=== PATIENT | male | born 2000 | race American Indian/Alaskan Native ===

== ENCOUNTER 2021-11-06 18:27 | Emergency (ER) | payer SELFPAY ==
[2021-11-06 18:43] VITALS: BP 157/88
[2021-11-06] MEDS ORDERED: ALBUTEROL 2.5 MG/3 ML NEBU IH ONE ×2 (20:05→20:48)
[2021-11-06] MEDS ORDERED: IPRATROPIUM 0.02% NEBU 2.5 ML IH ONE ×2 (20:06→20:46)
--- NOTE | 2021-11-06 20:25 | XRay Report ---
CHEST 2 VIEWS INDICATION / CLINICAL INFORMATION: shortness of breath. COMPARISON: None available. FINDINGS: SUPPORT DEVICES: None. HEART / MEDIASTINUM: No significant abnormality. LUNGS / PLEURA: No significant pulmonary or pleural abnormality. No pneumothorax. ADDITIONAL FINDINGS: No significant additional findings. IMPRESSION: 1. No acute findings. Signer Name: Piero Mayberry MD Signed: 11/06/2021 8:21 PM Workstation Name: [id number]
[2021-11-06] MEDS ORDERED: methylPREDNISolone Sod Succinate 125 MG/2 ML INJ IM ONE (20:46)
--- NOTE | 2021-11-06 22:40 | Emergency Department Report ---
ED Shortness of Breath HPI - General Chief Complaint: Dyspnea/Respdistress Stated Complaint: TROUBLE BREATHING Source: patient Mode of arrival: Ambulatory Limitations: No Limitations - History of Present Illness Initial Comments: Patient is a 20-year-old -[place] male with a history of asthma who presents to the ED with complaint of acute onset persistent nasal and sinus congestion, persistent dry cough with wheezing and chest tightness and shortness of breath for the last 1 week. Patient states that he has been using his brothers albuterol nebulizer at home with no relief. Patient stated that he has also been using his albuterol inhaler more frequently and ran out of his own inhaler prior to arrival in the ED, stating that these treatments at home did not help control his shortness of breath and wheezing. Patient denies dizziness, syncope, chest pain, nausea and vomiting, sore throat, diarrhea, dysuria, urinary frequency and urgency or palpitations and headache. MD Complaint: shortness of breath, cough, "asthma attack" -: Sudden, week(s) (1) Severity: moderate Pain Scale: 6 Quality: other Consistency: constant (Chest tightness) Improves With: nothing Worsens With: movement, coughing Known History Of: asthma Context: recent URI, allergen exposure, smoke/fume exposure Associated Symptoms: denies other symptoms, cough Treatments Prior to Arrival: bronchodilator - Related Data Home Oxygen Therapy: No Previous Rx's Medication Instructions Recorded Last Taken Type Albuterol Sulfate [Proair 1 - 2 puff IH Q6H PRN #1 inh 11/06/21 Unknown Rx Respiclick] Azithromycin [Zithromax Z-KATHY] 250 mg PO DAILY #6 tab 11/06/21 Unknown Rx Benzonatate [Tessalon Perles] 100 mg PO Q8HR #30 cap 11/06/21 Unknown Rx Cetirizine HCl [Zyrtec 10mg tab] 10 mg PO DAILY #30 tab 11/06/21 Unknown Rx methylPREDNISolone [Medrol 4MG 4 mg PO DAILY #21 tab 11/06/21 Unknown Rx DOSEPAK (21 tabs)] Allergies Allergy/AdvReac Type Severity Reaction Status Date / Time No Known Allergies Allergy Unverified 11/06/21 18:40 ED Review of Systems ROS: Stated complaint: TROUBLE BREATHING Other details as noted in HPI Constitutional: denies: chills, fever Eyes: denies: eye pain, eye discharge, vision change ENT: congestion. denies: ear pain, throat pain Respiratory: cough, shortness of breath, wheezing Cardiovascular: denies: chest pain, palpitations Endocrine: no symptoms reported Gastrointestinal: denies: abdominal pain, nausea, diarrhea Genitourinary: denies: urgency, dysuria Musculoskeletal: denies: back pain, joint swelling, arthralgia Skin: denies: rash, lesions Neurological: denies: headache, weakness, paresthesias Psychiatric: denies: anxiety, depression Hematological/Lymphatic: denies: easy bleeding, easy bruising ED Past Medical Hx - Past Medical History Previous Medical History?: Yes Hx Asthma: Yes - Medications Home Medications: Home Medications Medication Instructions Recorded Confirmed Last Taken Type Albuterol Sulfate [Proair 1 - 2 puff IH Q6H PRN #1 inh 11/06/21 Unknown Rx Respiclick] Azithromycin [Zithromax Z-KATHY] 250 mg PO DAILY #6 tab 11/06/21 Unknown Rx Benzonatate [Tessalon Perles] 100 mg PO Q8HR #30 cap 11/06/21 Unknown Rx Cetirizine HCl [Zyrtec 10mg tab] 10 mg PO DAILY #30 tab 11/06/21 Unknown Rx methylPREDNISolone [Medrol 4MG 4 mg PO DAILY #21 tab 11/06/21 Unknown Rx DOSEPAK (21 tabs)] ED Physical Exam - General Limitations: No Limitations General appearance: alert, in no apparent distress - Head Head exam: Present: atraumatic, normocephalic, normal inspection - Eye Eye exam: Present: normal appearance, PERRL, EOMI Pupils: Present: normal accommodation - ENT ENT exam: Present: mucous membranes moist, TM's normal bilaterally, normal external ear exam, other (Grossly congested nasal passages) - Neck Neck exam: Present: normal inspection, full ROM. Absent: tenderness - Respiratory Respiratory exam: Present: wheezes (Diffuse coarse wheezes throughout). Absent: normal lung sounds bilaterally, respiratory distress, rales, rhonchi, chest wall tenderness, accessory muscle use, decreased breath sounds, prolonged expiratory - Cardiovascular Cardiovascular Exam: Present: regular rate, normal rhythm, normal heart sounds. Absent: systolic murmur, diastolic murmur, rubs, gallop - GI/Abdominal GI/Abdominal exam: Present: soft, normal bowel sounds. Absent: tenderness, guarding, rebound, hyperactive bowel sounds, hypoactive bowel sounds, organomegaly, bruit - Extremities Exam Extremities exam: Present: normal inspection, full ROM, normal capillary refill. Absent: tenderness - Back Exam Back exam: Present: normal inspection, full ROM. Absent: tenderness, CVA tenderness (R), CVA tenderness (L), muscle spasm, paraspinal tenderness, vertebral tenderness - Neurological Exam Neurological exam: Present: alert, oriented X3, CN II-XII intact, normal gait, reflexes normal - Psychiatric Psychiatric exam: Present: normal affect, normal mood, anxious - Skin Skin exam: Present: warm, dry, intact, normal color. Absent: rash ED Course Vital Signs 11/06/21 11/06/21 11/06/21 18:42 20:33 20:34 Temperature 98.6 F Pulse Rate 67 Pulse Rate [ 62 Posterior Bilateral Throughout] Respiratory 18 Rate Respiratory 18 Rate [Posterior Bilateral Throughout] Blood Pressure 157/88 [Right] O2 Sat by Pulse 96 96 Oximetry 11/06/21 22:06 Temperature Pulse Rate Pulse Rate [ 79 Posterior Bilateral Throughout] Respiratory Rate Respiratory 18 Rate [Posterior Bilateral Throughout] Blood Pressure [Right] O2 Sat by Pulse Oximetry ED Medical Decision Making - Radiology Data Radiology results: report reviewed, [place] [address] XRay Report Signed Patient: DORIAN VARMA MR#: [id number] : 2000 Acct:[id number] Age/Sex: 20 / M ADM Date: 11/06/21 Loc: ED Attending Dr: Ordering Physician: YEVGENIY TERAN Date of Service: 11/06/21 Procedure(s): XR chest routine 2V Accession Number(s): [id number] cc: YEVGENIY TERAN Fluoro Time In Minutes: CHEST 2 VIEWS INDICATION / CLINICAL INFORMATION: shortness of breath. COMPARISON: None available. FINDINGS: SUPPORT DEVICES: None. HEART / MEDIASTINUM: No significant abnormality. LUNGS / PLEURA: No significant pulmonary or pleural abnormality. No pneumothorax. ADDITIONAL FINDINGS: No significant additional findings. IMPRESSION: 1. No acute findings. Signer Name: Piero Mayberry MD Signed: 11/06/2021 8:21 PM Workstation Name: [id number] Transcribed By: CW Dictated By: AYUSH MAYBERRY MD Electronically Authenticated By: AYUSH MAYBERRY MD Signed Date/Time: 11/06/212020 DD/ 20 TD/TT: Print Cancel - Medical Decision Making This is a 20-year-old -[place] male with a history of asthma who presents to the ED with complaint of acute onset persistent nasal and sinus congestion, persistent dry cough with wheezing and chest tightness and shortness of breath for the last 1 week. Patient states that he has been using his brothers albuterol nebulizer at home with no relief. Patient stated that he has also been using his albuterol inhaler more frequently and ran out of his own inhaler prior to arrival in the ED, stating that these treatments at home did not help control his shortness of breath and wheezing. In the ED, patient is alert and oriented x3 and is not in any distress. Patient is hemodynamically stable. Patient was treated in the ED with DuoNeb x2 and Solu-Medrol 125 mg intramuscular injection. Chest x-ray showed no acute cardiopulmonary abnormalities or pneumonitis. On reevaluation, patient's symptoms improved significantly, oxygen saturation remained at 100% on room air in the wheezing resolved. Patient was discharged home on medications and advised to follow-up with his primary care physician in 5 to 7 days for reevaluation or return to the ED immediately if symptoms get worse. - Differential Diagnosis Asthma; bronchitis; pneumonia; URI; rhinitis Critical care attestation.: If time is entered above; I have spent that time in minutes in the direct care of this critically ill patient, excluding procedure time. ED Disposition Clinical Impression: Acute bronchitis with asthma with acute exacerbation, Acute upper respiratory infection Disposition: HOME / SELF CARE / HOMELESS Is pt being admited?: No Does the pt Need Aspirin: No Condition: Stable Instructions: Upper Respiratory Infection, Adult, [id number], Acute Bronchitis, Adult, [id number], Asthma, Adult, [id number] Additional Instructions: Chest x-ray showed no acute cardiopulmonary abnormalities or pneumonitis. Therefore take medications as advised, drink plenty of fluids and follow-up with your primary care physician in 5 to 7 days for reevaluation. Return to the ED immediately if symptoms get worse. Prescriptions: methylPREDNISolone [Medrol 4MG DOSEPAK (21 tabs)] 4 mg PO DAILY #21 tab Albuterol Sulfate [Proair Respiclick] 1 - 2 puff IH Q6H PRN #1 inh PRN Reason: Wheezing Benzonatate [Tessalon Perles] 100 mg PO Q8HR #30 cap Azithromycin [Zithromax Z-KATHY] 250 mg PO DAILY #6 tab Cetirizine HCl [Zyrtec 10mg tab] 10 mg PO DAILY #30 tab Referrals: [facility] [Provider Group] - 3-5 Days Forms: Work/School Release Form(ED) Time of Disposition: 22:44 Print Language: BULGARIAN
== END 2021-11-06 23:41 | disposition home or self-care (01) ==
LOC: ED 18:27
DX: J45.901 Unspecified asthma with (acute) exacerbation (principal); J06.9 Acute upper respiratory infection, unspecified; Z79.899 Other long term (current) drug therapy
CPT/HCPCS: 71046; 94640; 96372; 99283; J2930; 94644